=== PATIENT | female | born 1955 | race Caucasian/White ===

== ENCOUNTER → 2017-06-22 | Outpatient (CLI) | payer OTHER | LOC: FIMAGING 14:10 | PROVIDERS: ATTEND Obstetrics & Gynecology | DX: Z12.31 Encounter for screening mammogram for malignant neoplasm of breast (principal) | CPT/HCPCS: G0202 ==

== ENCOUNTER → 2018-07-15 | Outpatient (CLI) | payer OTHER | LOC: FIMAGING 14:53 | PROVIDERS: ATTEND Obstetrics & Gynecology | DX: Z12.31 Encounter for screening mammogram for malignant neoplasm of breast (principal) ==

== ENCOUNTER 2018-08-10 18:05 | Emergency (ER) | payer OTHER ==
[2018-08-10] MEDS ORDERED: KETOROLAC 15 MG/1 ML SDV IVP ONE (18:56)
[2018-08-10] MEDS ORDERED: NS 1,000 ML IV ONE (18:56)
[2018-08-10] MEDS ORDERED: CYCLOBENZAPRINE 10 MG TAB PO ONE (18:56)
[2018-08-10 19:03] LABS: PLATELET COUNT 384 10^3/uL (150-400)
--- NOTE | 2018-08-10 20:06 | EDPHY ---
General - History Smoking Status: Former smoker Time Seen by Provider: 08/10/18 18:29 Narrative: CLINICAL IMPRESSION: Mild constipation, abdominal bloating ASSESSMENT/PLAN: [age] year old female presents to the emergency department with 5 days of generalized abdominal bloating and lower pelvic discomfort. No associated lower extremity edema, shortness of breath, orthopnea, dyspnea on exertion or chest pain. Abdomen is soft with no focal peritoneal findings. Labs show a mild renal insufficiency of 1.1, no electrolyte imbalance, metabolic disturbance or leukocytosis. Urine does not appear infected and clinically patient has no flank pain or symptoms to suggest pyelonephritis. Pelvic ultrasound reassuring, nonvisualized ovaries, normal appearing uterus. Patient is very concerned about possibility for ovarian cancer given a sister who from this and is requesting CT scan. CT is also reassuring, no acute abnormalities identified. She has mild constipation but no evidence of diverticulitis or intra-abdominal mass. Patient was reassured these findings, we discussed [id number] therapies for constipation and bloating. Follow up with primary care, warning signs return to ED sooner outlined and discharge case discussed with Dr. Zuñiga. DIFFERENTIAL DX: Abdominal pain includes but not limited to urinary tract infection, pyelonephritis, infection, ovarian cyst or mass, uterine fibroids, acute appendicitis, acute diverticulitis, small-bowel obstruction, constipation ED PROCEDURES: See lab and/or imaging results below ED COURSE: Ultrasound discussed with Radiology, , nonvisualized ovaries, normal appearing uterus, essentially unremarkable. Labs without significant abnormality, transaminitis, leukocytosis, severe anemia. She has mild renal insufficiency with creatinine of 1.1 and BUN of 25. Urine studies do not suggest underlying UTI, no hematuria or evidence of pyelonephritis. Case discussed with Dr. Zuñiga. Will plan to CT scan the patient and she is in agreement with this. Requesting Ativan prior to CT. 8:45 p.m.: CT scan results discussed with Dr. Simon. No acute findings identified. Mild constipation, no diverticulitis, intra-abdominal mass, atrophic ovaries noted. CHIEF COMPLAINT: abdominal pain and bloating HPI: 62-year-old otherwise healthy female past medical history of rheumatoid arthritis and hypertension presents to the emergency department with complaints of 5 days of generalized abdominal bloating and lower pelvic discomfort that seems to be getting worse. Patient reports approximately 50% increase in her normal abdominal girth. She has not taken her weight and is unsure if she has gained weight. No reported swelling or edema to the legs, shortness of breath, cough, or orthopnea. She has never had swelling like this before. She reports no prior abdominal surgery. She is tearful and concerned that she has ovarian cancer. Her sister apparently from this in her mid 40s. Patient had a normal gynecologic exam 1 year ago. She had labs drawn yesterday as a routine policy with her sheather but did not see a provider for her symptoms. No associated fever, chills, nausea, vomiting, constipation or change in bowel habits. No reported bloody stools. She states pain actually began in the low right back which continues to bother her. This is reproducible to palpation. She received a massage yesterday. No reported injury, heavy lifting or trauma. No bowel or bladder incontinence, saddle anesthesia, gait intolerance, or recent spinal procedure or surgery. She does not abuse IV drugs and is otherwise healthy. PAST MEDICAL HISTORY: Hypertension, rheumatoid arthritis See nurse/triage notes for additional history if applicable Pertinent Past Surgical History: Surgery for infertility and endometriosis many years ago Family History: Patient's sister of ovarian cancer in her mid 40s Social History: Nonsmoker, drinks socially, , here with her REVIEW OF SYSTEMS: All other systems negative Constitutional: No fever, no chills, appetite change. ENT: No sore throat, congestion, ear pain. Cardiovascular: No chest pain, no palpitations. Respiratory: No cough, no shortness of breath. Gastrointestinal: Positive for abdominal pain and bloating, no vomiting, diarrhea. Genitourinary: No hematuria, dysuria, flank pain, positive for bilateral pelvic pain Musculoskeletal: Positive for right-sided paraspinal back pain, joint swelling , joint pain, myalgias. Skin: No rashes, color change. Neurological: No headache, dizziness, weakness. PHYSICAL EXAM: General Appearance: Alert, oriented, appropriate, cooperative, NAD, well hydrated, non-toxic appearing, VSS, no hypoxia, tearful HEENT: Oropharynx clear is no erythema or exudates, no tonsillar hypertrophy or asymmetry. Dentition without abnormality. Neck: Supple, nontender, no lymphadenopathy, no midline pain, FROM, no meningismus. Respiratory: There are no retractions, lungs are clear to auscultation. Cardiac: Regular rate and rhythm, no murmurs or gallops. Gastrointestinal: Abdomen is soft, generalized lower abdominal and pelvic discomfort, no obvious a side ease or fluid wave, bowel sounds normal, no masses /hernia, no rigidity, guarding or focal peritoneal findings. Neurological: Alert and oriented x 3, CN 2-12 grossly intact, Skin: Warm, dry, no rashes, no nodules on palpation. MEDICAL DECISION MAKING: Patient was seen independently. Secondary supervising physician at time of evaluation was Dr. Zuñiga. Diagnosis: Abdominal bloating, mild constipation, musculoskeletal strain of right lumbar back.. New, requires workup Summary: See Assessment and Plan for summary of ED visit Clinical lab tests: ordered / reviewed. Independent visualization of images, tracing, or specimens: Yes. Decision to obtain medical records or history from someone other than the patient: Patient's Review / Summarize previous medical records: None available Discussed patient with another provider: Radiology, Dr. Zuñiga Patient Progress: Improved. (Everton Olson) Medical Decision Making: I did not see this patient while she was in the emergency department. However her care was discussed with the PA while the patient was in the department. I agree with treatment plan and management (Teddy Zuñiga) - Objective Vital Signs: Initial Vital Signs Temperature (C) 36.2 C 08/10/18 18:08 Heart Rate 88 08/10/18 18:08 Respiratory Rate 18 08/10/18 18:08 Blood Pressure 201/95 H 08/10/18 18:08 O2 Sat (%) 92 08/10/18 18:08 O2 Delivery Mode Room Air Allergies/Adverse Reactions: Penicillins Allergy (Verified 08/10/18 18:15) Home Medications: Medication Instructions Recorded Cyclobenzaprine [Flexeril] 10 mg PO TID #15 tab 08/10/18 Humira 08/10/18 Losartan Potassium 08/10/18 Laboratory Results: Laboratory Results 08/10/18 18:41 08/10/18 18:41 Medications Given: Discontinued Medications Cyclobenzaprine HCl (Flexeril) 10 mg PO EDNOW ONE Stop: 08/10/18 18:57 Last Admin: 08/10/18 19:05 Dose: 10 mg Sodium Chloride (Ns) 1,000 mls @ 0 mls/hr IV EDNOW ONE; Wide Open PRN Reason: Protocol Stop: 08/10/18 18:57 Last Admin: 08/10/18 19:05 Dose: 1,000 mls Ketorolac Tromethamine (Toradol) 15 mg IVP EDNOW ONE Stop: 08/10/18 18:57 Last Admin: 08/10/18 19:05 Dose: 15 mg Lorazepam (Ativan Injection) 1 mg IVP EDNOW ONE Stop: 08/10/18 20:22 Last Admin: 08/10/18 20:24 Dose: 1 mg Departure - Departure Disposition: Home, Routine, Self-Care Clinical Impression: Abdominal bloating Condition: Good Instructions: Gas and Bloating (ED), Abdominal Pain (ED) Additional Instructions: DISCHARGE INSTRUCTIONS FROM YOUR DOCTOR Thank you for visiting our emergency department today. Please keep in mind that discharge from the emergency department does not mean that there is nothing wrong - it simply means that we have not identified an emergency condition that requires further evaluation or treatment in the hospital. You should always plan to follow up with primary care for re-evaluation of your condition in the next 2-3 days. If you have been referred to a specialist, please call as soon as possible (today or tomorrow) to schedule your follow up appointment at the appropriate time. WE DID NOT IDENTIFY A DANGEROUS CAUSE FOR HER ABDOMINAL DISCOMFORT AND BLOATING TODAY. ULTRASOUND SHOWED AN ESSENTIALLY NORMAL UTERUS, NONVISUALIZED OVARIES, ENLARGED BOWEL GAS NOTED. CT SCAN WAS READ BY THE RADIOLOGY SHOWING MILD CONSTIPATION, NO EVIDENCE OF OVARIAN MASS, INTRA-ABDOMINAL MASS, OR OTHER ABNORMAL FINDING. YOU DO HAVE MILD CONSTIPATION. LABS SHOWED MILD DEHYDRATION BUT OTHERWISE NO SIGNIFICANT ELECTROLYTE IMBALANCE OR INFECTION. WE DID NOT SEE ANY ABNORMAL FINDINGS OF THE LUMBAR VERTEBRAE ON CT SCAN. A PRESCRIPTION FOR MUSCLE RELAXERS WAS PROVIDED. PLEASE FOLLOW-UP WITH PRIMARY CARE DOCTOR IN 24-48 HOURS. RETURN TO THE EMERGENCY DEPARTMENT FOR WORSENING BACK PAIN OR ABDOMINAL PAIN, FEVERS GREATER THAN 100.4, NUMBNESS TO HER GROIN OR LEGS, BOWEL OR BLADDER INCONTINENCE, URINARY RETENTION, WORSENING ABDOMINAL PAIN OR VOMITING , DIARRHEA, OR ANY OTHER CONCERNS. CONSIDER TAKING BE NO OR GAS-X WELL MIRALAX OR STOOL SOFTENERS FOR CONSTIPATION. People present with illnesses and injuries in different ways, and it is always possible that we have missed something. You may always return for re-evaluation if symptoms worsen or if they are not improving or if you develop new/different symptoms. Again, thank you for choosing our emergency department. We hope that you feel better. Referrals: Samuel Martins MD [Primary Care Provider] - 1-2 days without fail Prescriptions: Cyclobenzaprine [Flexeril] 10 mg PO TID #15 tab
[2018-08-10] MEDS ORDERED: IOPAMIDOL (ISOVUE-300) 100 ML BTL ONE (20:18)
[2018-08-10] MEDS ORDERED: LORazepam 2 MG/ML INJ IVP ONE (20:21)
[2018-08-10 20:55] VITALS: BP 193/90
== END 2018-08-10 21:27 | disposition home or self-care (01) ==
DX: R14.0 Abdominal distension (gaseous) (principal); E86.9 Volume depletion, unspecified; N85.8 Other specified noninflammatory disorders of uterus; I10 Essential (primary) hypertension; M06.9 Rheumatoid arthritis, unspecified; K44.9 Diaphragmatic hernia without obstruction or gangrene; Z87.891 Personal history of nicotine dependence; Z88.0 Allergy status to penicillin
CPT/HCPCS: 96374; J1885; J2060; Q9967